=== PATIENT | male | born 1980 | race Hispanic/Latino ===

== ENCOUNTER 2019-04-24 04:30 | Emergency (ER) | payer SELFPAY ==
[2019-04-24] MEDS ORDERED: Ketorolac Tromethamine 30 MG/ML VIAL ONE (04:52)
--- NOTE | 2019-04-24 06:25 | CT ---
CT CERVICAL SPINE WITHOUT CONTRAST: INDICATIONS: History of neck pain since [place]. COMPARISON: None. FINDINGS: No acute fracture or subluxation is evident. The craniocervical junction is normal. The osseous paramjit tral canal is normal. The prevertebral soft tissues are normal. The lung apices are clear. IMPRESSION: No acute osseous abnormality. POS: [facility]
== END 2019-04-24 05:38 | disposition home or self-care (01) ==
LOC: ERS 04:30
DX: M54.2 Cervicalgia (principal); Z79.82 Long term (current) use of aspirin
CPT/HCPCS: 72125; 96372; J1885

== ENCOUNTER 2024-06-19 09:48 | Outpatient (CLI) | payer OTHER | END 2024-06-19 09:49 | disposition home or self-care (01) | LOC: BICULT 09:48 | DX: R10.32 Left lower quadrant pain (principal) | CPT/HCPCS: 76700 ==